=== PATIENT | female | born 1970 ===

== ENCOUNTER 2016-09-04 10:18 | Emergency (ER) | payer OTHER ==
[2016-09-04 10:39] VITALS: BP 116/71; PULSE 65; RESP 18; TEMP 98.2; O2SAT 100
--- NOTE | 2016-09-04 10:51 | ED PDOC ---
HPI: Female Pain Chief Complaint (Provider): vaginal bleeding x 1 day History Per: Patient History/Exam Limitations: no limitations Onset/Duration Of Symptoms: Days Current Symptoms Are (Timing): Still Present Severity: Moderate Pain Scale Rating Of: 6 Quality Of Discomfort: Cramping Associated Symptoms: denies: Fever, Chills, Nausea, Vomiting, Diarrhea, Back Pain, Urinary Symptoms Additional History Per: Patient Additional Complaint(s): 46 y/o presenting today with c/o vaginal bleeding x 1 day. Bleeding is mild to moderate, associated with some lower abdominal cramping which has now subsided. Patient states she is approx 12 weeks dated by LMP 05/15/16. Patient has not seen an OB yet as she moved here from [place] recently. States taking PNV, last intercourse was 3 days ago, no vb, discharge or dyspareunia reported at that time. Currently denies f/c/n/v/cp/sob/abd pain/focal weakness or parasthesias. OBGYN hx: , all born FT, vaginal delivery, no problems or complications denies h/o STIs, sexually active with 1 male partner PMD: none OB: none yet Abnormal Vaginal Bleeding: Yes Last Menstral Period: 05/15/16 <Genaro Longo - Last Filed: 09/04/16 12:43> <Yoni Sierra - Last Filed: 09/04/16 14:37> Chief Complaint (Nursing): Female Genitourinary Supervising Attending Note - Attestation: I have personally seen and examined this patient.: Yes I have fully participated in the care of the patient.: Yes I have reviewed all pertinent clinical information, including history, physical exam and plan: Yes - Notes: Notes:: Pt. w/ VB, thought she was ; likely spontaneous AB, pt. to f/u w/ OB in 2 days. <Yoni Sierra - Last Filed: 09/04/16 14:37> Past Medical History Vital Signs: Last Vital Signs Temp 98.2 F 09/04/16 10:38 Pulse 65 09/04/16 10:38 Resp 18 09/04/16 10:38 BP 116/71 09/04/16 10:38 Pulse Ox 100 09/04/16 10:38 - Family History Family History: States: Unknown Family Hx <Genaro Longo - Last Filed: 09/04/16 12:43> Vital Signs: Last Vital Signs Temp 98.2 F 09/04/16 10:38 Pulse 65 09/04/16 10:38 Resp 18 09/04/16 10:38 BP 116/71 09/04/16 10:38 Pulse Ox 100 09/04/16 12:53 <Yoni Sierra - Last Filed: 09/04/16 14:37> - Allergies Allergies/Adverse Reactions: Allergies Allergy/AdvReac Type Severity Reaction Status Date / Time No Known Allergies Allergy Verified 09/04/16 10:50 Review of Systems ROS Statement: Except As Marked, All Systems Reviewed And Found Negative Constitutional: Negative for: Fever, Chills, Sweats Respiratory: Negative for: Cough, Shortness of Breath Gastrointestinal: Negative for: Nausea, Vomiting, Diarrhea, Hematochezia, Hematemesis Genitourinary Female: Positive for: Vaginal Bleeding. Negative for: Dysuria, Hematuria, Vaginal Discharge, Pelvic Pain Skin: Negative for: Rash <Genaro Longo - Last Filed: 09/04/16 12:43> Physical Exam - Physical Exam Appears: Positive for: Non-toxic, No Acute Distress Skin: Positive for: Warm, Dry Eye Exam: Positive for: EOMI Neck: Positive for: Normal, Painless ROM, Supple Cardiovascular/Chest: Positive for: Regular Rate, Rhythm Respiratory: Positive for: Normal Breath Sounds Pelvic Exam: Positive for: Active Bleeding, Other (cervical os closed, no lacerations or masses visualized; dark red blood pooling in vaginal vault). Negative for: Cervicitis, Lesions, Mass Back: Negative for: L CVA Tenderness, R CVA Tenderness Extremity: Negative for: Normal ROM, Pedal Edema <Genaro Longo - Last Filed: 09/04/16 12:43> - Laboratory Results Result Diagrams: 09/04/16 11:23 09/04/16 11:23 - ECG O2 Sat by Pulse Oximetry: 100 - Progress ED Course And Treament: vaginal bleeding during - cbc, cmp, UA, type and screen, quantative BHCG - TVUS - reassess <Genaro Longo - Last Filed: 09/04/16 12:43> - Laboratory Results Result Diagrams: 09/04/16 11:23 09/04/16 11:23 <Yoni Sierra - Last Filed: 09/04/16 14:37> Disposition - Disposition Disposition: Transfer of Care Disposition Time: 12:52 <Genaro Longo - Last Filed: 09/04/16 12:43> <Yoni Sierra - Last Filed: 09/04/16 14:37> - Clinical Impression Clinical Impression: Complete - Disposition [facility] Condition: STABLE Instructions: Spontaneous Miscarriage (ED) Print Language: [place]
[2016-09-04 11:30] LABS: HEMATOCRIT 40.4 % (34.0-47.0); MEAN CELL VOLUME 86.1 fl (81.0-99.0); MEAN CORPUSCULAR HEMOGLOBIN 28.8 pg (27.0-31.0); MEAN CORPUSCULAR HGB CONC 33.5 g/dL (33.0-37.0); RED CELL DISTRIBUTION WIDTH 15.8 % (11.5-14.5); WHITE BLOOD COUNT 7.1 K/uL (4.8-10.8)
[2016-09-04 11:43] LABS: ALB/GLOB RATIO 1.1 (1.0-2.1); ALKALINE PHOSPHATASE 80 U/L (38-126); ALT/SGPT 24 U/L (9-52); AST/SGOT 24 U/L (14-36); BILIRUBIN,TOTAL 0.5 mg/dl (0.2-1.3); BLOOD UREA NITROGEN 16 mg/dl (7-17); CALCIUM 9.6 mg/dL (8.4-10.2); CARBON DIOXIDE 29 mmol/L (22-30); CHLORIDE 102 mmol/L (98-107); GFR AFRICAN-AMERICAN > 60; GLUCOSE,RANDOM 109 mg/dL (65-105); POTASSIUM 4.4 MMOL/L (3.6-5.0); SODIUM 139 mmol/l (132-148)
[2016-09-04 12:24] LABS: RBC URINE 2889 /hpf (0-3); URINE BACTERIA RARE (<OCC)
[2016-09-04 12:33] LABS: URINE COLOR RED (YELLOW); URINE GLUCOSE (UA) NEGATIVE (Normal)
[2016-09-04 12:34] LABS: PH,URINE 7.5 (5.0-8.0); URINE BILIRUBIN NEGATIVE (NEGATIVE); URINE BLOOD LARGE (NEGATIVE); URINE KETONE NEGATIVE (NEGATIVE); URINE LEUKOCYTE ESTERASE NEGATIVE Leu/uL (Negative); URINE PROTEIN 30 mg/dL (NEGATIVE); URINE UROBILINOGEN 0.2 mg/dL (0.2-1.0)
--- NOTE | 2016-09-04 14:38 | US ---
HISTORY: vaginal spotting in first trim COMPARISON: None available. TECHNIQUE: Transvaginal pelvic ultrasound was performed. FINDINGS: UTERUS: Measures 9.5 x 4.3 x 5.1 cm. Anteverted and normal in size. There is heterogeneous myometrial echotexture without fibroid or other mass lesion seen. ENDOMETRIUM: Measures 6 mm in diameter. The central endometrial echo complex is within normal limits. CERVIX: There are multiple nabothian cysts in the cervix, there is coarse eccentric calcification in one of the larger cysts. RIGHT OVARY: Not visualized. LEFT OVARY: Measures 2.6 x 1.7 x 2.6 cm. No solid mass. Normal flow. FREE FLUID: No significant free fluid noted. OTHER FINDINGS: None. IMPRESSION: Normal thickness and appearance of central endometrial echo complex. The right ovary is not visualized. No adnexal mass or left ovarian cyst.
== END 2016-09-04 15:01 | disposition home or self-care (01) ==
LOC: H.ER 10:18
DX: O03.9 Complete or unspecified spontaneous abortion without complication (principal)